=== PATIENT | female | born 1970 | race Caucasian/White ===

== ENCOUNTER 2020-01-12 08:55 | Emergency (ER) | payer BC ==
[~2020-01-12] VITALS: Ht 152.4 cm; Wt 108.0 kg
[2020-01-12 08:58] VITALS: BP 129/78; Ht 152.4 cm; Wt 108.0 kg
== END 2020-01-12 09:25 | disposition home or self-care (01) ==
LOC: ED 08:55
DX: B34.9 Viral infection, unspecified (principal)